=== PATIENT | male | born 1980 | race Caucasian/White ===

== ENCOUNTER 2018-05-09 16:55 | Emergency (ER) | payer OTHER ==
[2018-05-09 16:57] VITALS: TEMP 97.2
[2018-05-09] MEDS ORDERED: NORCO 325 MG-51 TAB PO (17:39)
[2018-05-09 18:19] VITALS: BP 141/88; PULSE 74
== END 2018-05-09 18:20 | disposition home or self-care (01) ==
LOC: COL.ER 16:55
DX: S06.0X1A Concussion with loss of consciousness of 30 minutes or less, initial encounter (principal); S00.93XA Contusion of unspecified part of head, initial encounter; W20.8XXA Other cause of strike by thrown, projected or falling object, initial encounter; Y99.0 Civilian activity done for income or pay